=== PATIENT | female | born 1985 | race African-American/Black ===

== ENCOUNTER → 2021-03-25 | Outpatient (CLI) | payer OTHER ==
[2021-03-25 14:32] LABS: BASO % 0.2 % (0.0-1.0); EOS # 0.2 10^3/uL (0.0-0.5); EOS % 1.8 % (0.0-3.0); HEMATOCRIT 39.3 % (36.0-47.0); HEMOGLOBIN 12.7 g/dl (12.0-15.5); LYMPH # 2.9 10^3/uL (1.5-5.0); LYMPH % 32.4 % (24.0-44.0); MEAN CORPUSCULAR HEMOGLOBIN 29.9 pg (27.0-33.0); MEAN CORPUSCULAR HGB CONC 32.3 g/dl (32.0-36.5); MEAN CORPUSCULAR VOLUME 92.5 fl (80.0-96.0); MONO # 0.5 10^3/uL (0.0-0.8); MONO % 5.5 % (2.0-8.0); NEUTROPHILS # 5.4 10^3/uL (1.5-8.5); NEUTROPHILS % 59.9 % (36.0-66.0); PLATELET COUNT, AUTOMATED 443 10^3/uL (150-450); RED BLOOD COUNT 4.25 10^6/uL (4.00-5.40); WHITE BLOOD COUNT 8.9 10^3/uL (4.0-10.0)
[2021-03-25 15:46] LABS: HEPATITIS B SURFACE ANTIGEN NEGATIVE (NEGATIVE)
== END ==
LOC: M LAB 13:09
PROVIDERS: ATTEND Internal Medicine Gastroenterology
DX: K50.80 Crohn's disease of both small and large intestine without complications (principal)

== ENCOUNTER → 2021-03-30 | Outpatient (REF) | payer OTHER | LOC: M LAB REF 14:34 | PROVIDERS: ATTEND Internal Medicine Gastroenterology | DX: K50.80 Crohn's disease of both small and large intestine without complications (principal) ==

== ENCOUNTER 2021-06-01 14:31 | Outpatient (CLI) | payer OTHER ==
[~2021-06-01] VITALS: Ht 160 cm; Wt 100.0 kg
[~2021-06-01 14:31] MED LIST: VEDOLIZUMAB 300 MG in NS 250 ML IV ONE; diphenhydrAMINE 25MG CAP PO ONE
[2021-06-01 15:20] VITALS: BP 137/82
[2021-06-01] MEDS ORDERED: AMLO25TA PO (15:36)
[2021-06-01] MEDS ORDERED: CHLO125TA PO (15:36)
== END 2021-06-01 16:10 | disposition home or self-care (01) ==
LOC: M INFU 14:31
PROVIDERS: ATTEND Internal Medicine Gastroenterology
DX: K50.90 Crohn's disease, unspecified, without complications (principal)

== ENCOUNTER 2021-06-05 03:52 | Emergency (ER) | payer OTHER, SELFPAY ==
[~2021-06-05] VITALS: Ht 160 cm; Wt 98.4 kg
[~2021-06-05 03:52] MED LIST changes: +AMLO25TA PO; +CHLO125TA PO; -VEDOLIZUMAB 300 MG in NS 250 ML IV ONE; -diphenhydrAMINE 25MG CAP PO ONE
[2021-06-05] MEDS ORDERED: ENTY1INJ IV (04:13)
[2021-06-05] MEDS ORDERED: PRED10PA PO (04:13)
[2021-06-05] MEDS ORDERED: ZOFR4TAB16 PO (04:13)
[2021-06-05] MEDS ORDERED: DICY10CA13 PO (04:13)
[2021-06-05] MEDS ORDERED: METOCLOPRAMIDE INJ 10MG/2ML VIAL (J2765 PER 1) IV ONE (08:40)
[2021-06-05] MEDS ORDERED: NS 1,000 ML IV ONE (08:40)
[2021-06-05] MEDS ORDERED: PANTOPRAZOLE 40MG VIAL (C9113 PER 1) IV ONE (08:55)
[2021-06-05 09:57] LABS: BASO # 0.1 10^3/uL (0.0-0.2); BASO % 0.4 % (0.0-1.0); EOS # 0.1 10^3/uL (0.0-0.5); HEMATOCRIT 41.2 % (36.0-47.0); HEMOGLOBIN 13.4 g/dl (12.0-15.5); LYMPH % 30.6 % (24.0-44.0); MEAN CORPUSCULAR HEMOGLOBIN 30.1 pg (27.0-33.0); MEAN CORPUSCULAR HGB CONC 32.5 g/dl (32.0-36.5); MEAN CORPUSCULAR VOLUME 92.6 fl (80.0-96.0); MONO # 0.9 10^3/uL (0.0-0.8); MONO % 7.1 % (2.0-8.0); NEUTROPHILS # 7.9 10^3/uL (1.5-8.5); NEUTROPHILS % 60.3 % (36.0-66.0); PLATELET COUNT, AUTOMATED 437 10^3/uL (150-450); RED BLOOD COUNT 4.45 10^6/uL (4.00-5.40); WHITE BLOOD COUNT 13.1 10^3/uL (4.0-10.0)
[2021-06-05 10:22] LABS: BLOOD UREA NITROGEN 15 MG/DL (7-18); CALCIUM LEVEL 9.3 MG/DL (8.5-10.1); CARBON DIOXIDE LEVEL 32 MEQ/L (21-32); CHLORIDE LEVEL 96 MEQ/L (98-107); CREATININE FOR GFR 0.89 MG/DL (0.55-1.30); GLOMERULAR FILTRATION RATE > 60.0 (>60); GLUCOSE, FASTING 110 MG/DL (70-100); POTASSIUM SERUM 3.3 MEQ/L (3.5-5.1); SODIUM LEVEL 133 MEQ/L (136-145)
[2021-06-05 10:52] VITALS: BP 131/77
[2021-06-05 11:13] LABS: ALBUMIN 2.9 GM/DL (3.2-5.2); ALT/SGPT 80 U/L (12-78); BILIRUBIN,DIRECT < 0.1 MG/DL (0.0-0.2); BILIRUBIN,TOTAL 0.4 MG/DL (0.2-1.0); LIPASE 32 U/L (73-393); TOTAL PROTEIN 7.5 GM/DL (6.4-8.2)
[2021-06-05] MEDS ORDERED: POTASSIUM CHLORIDE 10MEQ SR TABLET PO ONE (11:15)
[2021-06-05] MEDS: GASTROGRAFIN SOLUTION 30ML PO SCH ×2 (12:45→13:15)
[2021-06-05] MEDS ORDERED: ISOVUE-370 76% 100ML VIAL As Ordered ONE (13:45)
--- NOTE | 2021-06-05 14:28 | REP ---
INDICATION: Crohn's, increased abd pain. COMPARISON: None. TECHNIQUE: Standard helical technique after the intravenous administration of 100 cc Isovue 370 FINDINGS: The lung bases are clear. The liver, spleen, pancreas, adrenal glands, and kidneys are within normal limits. Tiny densities are seen in the dependent portion of the gallbladder. The abdominal aorta and para-aortic regions are within normal limits. The bowel loops and the mesenteries are within normal limits. There is no evidence of free fluid or free air. There is no evidence of a mass or adenopathy. There is a T-shaped radiodensity in the uterus consistent with an IUD. Bone window technique throughout the examination shows the osseous structures to be within normal limits. IMPRESSION: Possible tiny gravel-like choleliths. CT findings are otherwise within normal limits. <Electronically signed by Mitul Chambers > 06/05/21 [id number]
--- NOTE | 2021-06-05 16:19 | REP ---
INDICATION: ?stones on CT, r/o cholecystitis. TECHNIQUE: Real-time sonographic evaluation of the right upper quadrant with Doppler FINDINGS: Multiple ultrasonographic images of the liver show the hepatic parenchymal echo texture to appear unremarkable. There are no focal masses. There is no intrahepatic ductal dilatation. The common bile duct measures approximately 5 mm in its greatest transverse dimension. Multiple ultrasonographic images of the gallbladder show no focal or diffuse gallbladder wall thickening. There are no echogenic foci within the gallbladder lumen, which casts acoustic shadows. There is no pericholecystic edema. Images of the pancreatic region show no gross abnormality. The imaged portion of the right kidney is unremarkable. IMPRESSION: Unremarkable right upper quadrant ultrasound. Accredited by the [employer] in General Ultrasound. <Electronically signed by Mitul Chambers > 06/05/21 [id number]
[2021-06-05] MEDS ORDERED: GI COCKTAIL 50ML BTL(HYOSCYAMINE/MAALOX/LIDOCAINE VISCOUS)(1:3:1) PO ONE (16:20)
[2021-06-05] MEDS ORDERED: PROT1TAB2 PO (16:26)
[2021-06-05] MEDS ORDERED: REGL10TA6 PO (16:26)
== END 2021-06-05 16:59 | disposition home or self-care (01) ==
LOC: M ED 03:52
DX: K50.90 Crohn's disease, unspecified, without complications (principal); K29.70 Gastritis, unspecified, without bleeding; T50.995A Adverse effect of other drugs, medicaments and biological substances, initial encounter; Y92.89 Other specified places as the place of occurrence of the external cause; E66.9 Obesity, unspecified; Z79.899 Other long term (current) drug therapy
CPT/HCPCS: 74177; 76705; 80048; 80076; 81001; 83690; 85025; 96361; 96374; 96375; 99284; C9113; J2765; Q9963; Q9967

== ENCOUNTER 2021-06-13 18:49 | Inpatient (IN) | payer OTHER ==
[~2021-06-13] VITALS: Ht 160 cm; Wt 94.3 kg
[~2021-06-13 18:49] MED LIST changes: +DICY10CA13 PO; +ENTY1INJ IV; +PRED10PA PO; +PROT1TAB2 PO; +REGL10TA6 PO; +ZOFR4TAB16 PO
[2021-06-13 21:15] VITALS: BP 163/102
[2021-06-13] MEDS ORDERED: NS 1,000 ML IV ONE (21:25)
[2021-06-13] MEDS ORDERED: ONDANSETRON 4MG/2ML VIAL IV PRN (21:25)
[2021-06-13] MEDS ORDERED: NS 1,000 ML IV SCH (21:25)
--- NOTE | 2021-06-13 21:51 | HPEPDOC ---
General Date of Admission Jun 13, 2021 at 20:06 Date of Service: Jun 13, 2021 Chief Complaint The patient is a 35-year-old female admitted with a reason for visit of Severe Crohns Disease. Source: Patient, Family History of Present Illness Jessie Boone is a 35yo AA female with significant medical history of Crohn's disease and hypertension who presents with complaints of intractable nausea/vomiting. Patient seen in waiting area as she is a direct admit from GI clinic. Exam somewhat limited given pending room placement and patient is notably fatigued and having trouble conversing or giving detailed history due to her nausea. However, family member at bedside does help with HPI. Reportedly, patient has a history of Crohn's and last flare in 2018/2018. For the past 2 to 3 years patient has been without any flareups and thus she was deescalated off any medications. Patient moved to [place] in December and establish care in March with Dr. Manzo when pt started noticing some GI changes similar to past. She reports everything was status quo until 2 weeks ago she started having some nausea vomiting abdominal discomfort and diarrhea. On June 03 she presented to [place] and was found to be slightly dehydrated given some IV fluid and plan for discharge home with follow-up OP. Unfortunately, patient had worsening abdominal discomfort and nausea vomiting June 05 and presented to [facility] ER. She underwent labs and imaging and was sent home. Specifically, the CT abdomen pelvis showed "gravel-like" galls tones without acute cholecystitis and thus gallbladder ultrasound was completed -found unremarkable and patient was sent home for follow-up with GI. Patient reported for GI follow-up today. Patient still with poor p.o. intake, nausea vomiting and diarrhea. She is with periumbilical and left mid quadrant discomfort upon examination however not exquisitely tender. Given her poor p.o. intake, tachycardia, noticeable discomfort and significant history, GI suggested direct admit for hydration and sepsis work-up as well and anticipated scope in 1 to 2 days. Pt denies fever/chills, fulton, sinus congestion, sore throat, productive cough, sob, palpitations, chest pain, sensory changes or syncope. Patient endorses dry mouth and feeling thirsty. She reports some episodes of diarrhea, denies blood. Abdominal pain described as moderate aching; worse with palpation. She does report some aggravation during emesis. She is found to be hypertensive 163/103 hr 109 afebrile. She endorses taking her thiazide diuretic and Norvasc earlier today and able to "keep it down". Admission imaging and lab studies to be obtained. Patient will be admitted for further evaluation management of presenting concerns Home Medications Scheduled Chlorthalidone (Chlorthalidone) 25 Mg Tablet, 1 TAB PO DAILY, (Reported) Dicyclomine HCl (Dicyclomine HCl) 10 Mg Capsule, 10 MG PO TID for irritable bowel symptoms, (Reported) Pantoprazole Sodium (Protonix) 40 Mg Tablet.dr, 40 MG PO DAILY Prednisone (Prednisone) 10 Mg Tab.ds.pk, 10 MG PO DAILY, (Reported) Vedolizumab (Entyvio) 300 Mg Vial, 300 MG IV asd, (Reported) Scheduled PRN Metoclopramide HCl (Reglan) 10 Mg Tablet, 10 MG PO Q6H PRN for NAUSEA Ondansetron HCl (Zofran) 4 Mg Tablet, 4 MG PO Q6-8HP PRN for nausea/vomiting, (Reported) Allergies Coded Allergies: No Known Allergies (Unverified , 06/05/21) Past Medical History Medical History Hypertension, Crohn's disease Surgical History Two C-sections, wisdom teeth removal Family History Significant Family History: Hypertension Social History * Smoker: non-smoker Alcohol: Denies Drugs: denies Recent Travel/Sick Contacts: Reports: Recent travel Psychosocial History: No pertinent psych hx Patient is , has children and recently moved to [place] in December A-FIB/[facility] A-FIB History Current/History of A-Fib/PAF?: No Current PO Anticoag Therapy: No Review of Systems Constitutional: Reports: Fatigue; Denies: Chills, Fever, Night Sweats Eyes: Denies: Pain, Vision change ENT: Denies: Head Aches, Ear Pain, Dysphagia Skin: Denies: Rash, Lesions, Breakdown Pulmonary: Denies: Dyspnea, Cough Cardiovascular: Denies: Chest Pain, Palpitations, Orthopnea, Paroxysmal Noc. Dyspnea, Lt Headedness Gastrointestinal: Reports: Nausea, Vomiting, Abdominal Pain, Diarrhea Genitourinary: Denies: Dysuria, Frequency, Incontinence, Retention Hematologic: Denies: Bruising, Bleeding Excessively Musculoskeletal: Denies: Neck Pain, Back Pain, Joint Pain, Muscle Pain, Spasms Neurological: Denies: Weakness, Numbness, Change in speech, Confusion Psych: Reports: Mood Normal; Denies: Depression, Memory Issues Physical Examination General Exam: Positive: Alert, Cooperative, Mild Distress (Patient appears uncomfortable and exhausted) Eye Exam: Positive: PERRLA, Conjunctiva & lids normal, EOMI; Negative: Sclera icteric ENT Exam: Positive: Atraumatic, Mucous membr. moist/pink, Pharynx Normal Neck Exam: Positive: Supple; Negative: JVD, thyromegaly Chest Exam: Positive: Clear to auscultation, Normal air movement Heart Exam: Positive: Tachycardic, Regular Rhythm, Normal S1, Normal S2; Negative: Murmurs, Rubs Abdomen Exam: Positive: Normal bowel sounds, Soft, Tenderness (Umbilical and left upper quadrant); Negative: Hepatospenomegaly Extremity Exam: Positive: Normal pulses; Negative: Clubbing, Cyanosis, Edema Skin Exam: Positive: Nl turgor and temperature; Negative: Breakdown, Lesion Neuro Exam: Positive: Normal Gait, Normal Speech, Cranial Nerves 3-12 NL, Reflexes 2+ Psych Exam: Positive: Mental status NL, Mood NL, Oriented x 3 Vital Signs hr 103, bp 163/103, T97.3, RR20 Assessment/Plan 1. Intractable nausea/vomiting abdominal plain: In setting of history of Crohn's disease Monitor patient I's and O's KUB and Anticipate will need CT abdomen pelvis although patient does vocalize discomfort with the thought of having to go for further imaging at this time Symptom management/supportive care: Hydration,antiemetics, analgesics Monitor for signs symptoms of infection; initial lab work pending consider infectious etiology given pt with SIRS. Consider empiric coverage if pt becomes febrile. -Will hold off on steroids for Flare pend return of labs and imaging for sepsis w/u. A.m. labs, f/u BC Clear liquid diet GI consult; appreciate further recommendations 2. Hypertensive urgency: BP 163/103. In setting of admission, reported pain, ac tive dry heaving. Patient reports that she has been compliant with medications but is unsure if she "kept them down". -Monitor BP in setting of above, consideration of infection. -Thiazide diuretic held given to poor p.o. intake and dehydration -Continue Norvasc 3. Tachycardia: Heart rate 100-115. Regular upon auscultation. In setting of above, likely dehydration and demand driven, anticipate improvement with treatment above. -Obtain EKG; QTC will be helpful if patient needs to be initiated on antibiotics as well as for baseline monitoring with frequent antiemetic use -Patient will be monitored on telemetry -Check magnesium -Hydrate and electrolyte repletion as needed 4. Obesity: Complicates care DVT prophylaxis: Abhinav score low; SCDs and encourage early ambulation CODE STATUS: Full code, at bedside would be patient's surrogate Disposition planning: Home pending clinical improvement Plan / VTE VTE Prophylaxis Ordered?: Yes OLIVIA SAMUEL NP Jun 13, 2021 20:55
--- NOTE | 2021-06-13 22:12 | REPVR ---
PROCEDURE INFORMATION: Exam: XR Chest Exam date and time: 06/13/2021 9:51 PM Age: 35 years old Clinical indication: Other: Sepsis? ; Additional info: Aspiration, sepsis w/u TECHNIQUE: Imaging protocol: XR of the chest. Views: 1 view. COMPARISON: CT ABD/PEL W/IV ORAL CONTRAS 06/05/2021 1:59 PM FINDINGS: Lungs: Low lung volumes. Clear lungs. Pleural spaces: Unremarkable. No pleural effusion. No pneumothorax. Heart/Mediastinum: Unremarkable. No cardiomegaly. Bones/joints: Unremarkable. IMPRESSION: No acute findings. Electronically signed by: Zackery Martines On 06/13/2021 22:12:05 PM
--- NOTE | 2021-06-13 22:12 | REPVR ---
PROCEDURE INFORMATION: Exam: XR Abdomen Exam date and time: 06/13/2021 9:51 PM Age: 35 years old Clinical indication: Abdominal pain; Other: Severe crohns disease; Additional info: N/v, abdominal pain TECHNIQUE: Imaging protocol: XR of the abdomen. Views: Frontal supine view of the abdomen. 1 View. COMPARISON: CT ABD/PEL W/IV ORAL CONTRAS 06/05/2021 1:59 PM FINDINGS: Gastrointestinal tract: Normal. No bowel dilation. Bones/joints: Unremarkable. IMPRESSION: No acute findings. Electronically signed by: Zackery Martines On 06/13/2021 22:11:38 PM
[2021-06-13] MEDS: MORPHINE 2 MG/ML 1ML VIAL (J2270) IV PRN (23:15)
[2021-06-13 23:19] LABS: BASO # 0.1 10^3/uL (0.0-0.2); BASO % 0.6 % (0.0-1.0); EOS % 0.3 % (0.0-3.0); HEMATOCRIT 45.1 % (36.0-47.0); HEMOGLOBIN 14.9 g/dl (12.0-15.5); LYMPH # 2.7 10^3/uL (1.5-5.0); LYMPH % 20.9 % (24.0-44.0); MEAN CORPUSCULAR HEMOGLOBIN 30.2 pg (27.0-33.0); MEAN CORPUSCULAR VOLUME 91.5 fl (80.0-96.0); MONO # 0.8 10^3/uL (0.0-0.8); MONO % 5.7 % (2.0-8.0); NEUTROPHILS # 9.4 10^3/uL (1.5-8.5); NEUTROPHILS % 71.7 % (36.0-66.0); PLATELET COUNT, AUTOMATED 465 10^3/uL (150-450); RED BLOOD COUNT 4.93 10^6/uL (4.00-5.40); WHITE BLOOD COUNT 13.1 10^3/uL (4.0-10.0)
[2021-06-13 23:51] LABS: ALBUMIN 2.7 GM/DL (3.2-5.2); ALT/SGPT 20 U/L (12-78); AMYLASE 38 U/L (25-115); BILIRUBIN,TOTAL 0.5 MG/DL (0.2-1.0); BLOOD UREA NITROGEN 6 MG/DL (7-18); CALCIUM LEVEL 9.5 MG/DL (8.5-10.1); CARBON DIOXIDE LEVEL 27 MEQ/L (21-32); CHLORIDE LEVEL 87 MEQ/L (98-107); CREATININE FOR GFR 0.76 MG/DL (0.55-1.30); GLOMERULAR FILTRATION RATE > 60.0 (>60); GLUCOSE, FASTING 100 MG/DL (70-100); LIPASE 42 U/L (73-393); MAGNESIUM LEVEL 2.1 MG/DL (1.8-2.4); POTASSIUM SERUM 2.4 MEQ/L (3.5-5.1); SODIUM LEVEL 128 MEQ/L (136-145); TOTAL PROTEIN 8.5 GM/DL (6.4-8.2)
[2021-06-14] VITALS (7 sets, daily range): BP systolic 122–135; BP diastolic 76–92
[2021-06-14] MEDS ORDERED: POTASSIUM CHLORIDE 10MEQ SR TABLET PO ONE (00:55)
[2021-06-14] MEDS ORDERED: PROMETHAZINE INJ 25 MG/ML VIAL (J2550) IM ONE (01:00)
[2021-06-14] MEDS: KCL 10MEQ/100ML SWI (KRUN) 10 MEQ in IV 1 EA IV SCH ×6 (02:16→18:05)
[2021-06-14] MEDS ORDERED: KCL 40MEQ in NS 1000ML 1,000 ML IV SCH ×2 (02:40→08:00)
[2021-06-14] MEDS ORDERED: NS 1,000 ML IV SCH (02:50)
[2021-06-14] MEDS ORDERED: AMLO1TAB24 PO (03:02)
[2021-06-14] MEDS ORDERED: METH-1164 PO (03:02)
[2021-06-14] MEDS ORDERED: HOME MED LIST COMPLETE! XX SCH (03:05)
[2021-06-14] MEDS: MORPHINE 2 MG/ML 1ML VIAL (J2270) IV PRN ×2 (03:22→07:36)
[2021-06-14 05:56] LABS: RSV AMPLIFICATION NEGATIVE (NEGATIVE)
--- NOTE | 2021-06-14 07:06 | ECGEPIP ---
[facility] Test Date: 2021-06-14 Pat Name: KATI BRICENO Department: Room: [place] [address] Gender: Female Commodity Supervisor: Marjan YI RN : 1985 Requested By: OLIVIA Azevedo Order Number: [id number] Reading MD: Monica Li Measurements Intervals [place] Rate: 101 P: 48 LA: 138 QRS: 20 QRSD: 100 T: 35 QT: 348 QTc: 451 Interpretive Statements Sinus tachycardia NO PRIOR LAE Electronically Signed on 06-14-2021 7:06:03 EST by Monica Li
[2021-06-14] MEDS ORDERED: POTASSIUM CHLORIDE 10MEQ SR TABLET PO SCH (09:00)
[2021-06-14] MEDS: NS 1,000 ML IV SCH ×2 (09:02→18:06)
[2021-06-14] MEDS: ONDANSETRON 4MG/2ML VIAL IV SCH ×3 (09:02→16:52)
[2021-06-14] MEDS ORDERED: KCL 10MEQ/100ML SWI (KRUN) 10 MEQ in IV 1 EA IV SCH (09:35)
[2021-06-14] MEDS ORDERED: HYDROMORPHONE HCL 0.5 MG/ 0.5 ML SYRINGE (J1170 PER 1) IV ONE (09:45)
[2021-06-14] MEDS: CIPROFLOXACIN 400 MG in IV 1 EA IV SCH (10:01)
[2021-06-14] MEDS: KCL 10MEQ/100ML SWI (KRUN) 100 ML IV SCH ×2 (10:01→13:08)
[2021-06-14 10:15] LABS: BASO # 0.1 10^3/uL (0.0-0.2); BASO % 0.4 % (0.0-1.0); EOS # 0.1 10^3/uL (0.0-0.5); EOS % 0.5 % (0.0-3.0); HEMATOCRIT 38.2 % (36.0-47.0); LYMPH # 2.4 10^3/uL (1.5-5.0); LYMPH % 20.7 % (24.0-44.0); MEAN CORPUSCULAR HEMOGLOBIN 30.3 pg (27.0-33.0); MEAN CORPUSCULAR VOLUME 91.8 fl (80.0-96.0); MONO # 0.6 10^3/uL (0.0-0.8); MONO % 4.8 % (2.0-8.0); NEUTROPHILS # 8.5 10^3/uL (1.5-8.5); PLATELET COUNT, AUTOMATED 429 10^3/uL (150-450); RED BLOOD COUNT 4.16 10^6/uL (4.00-5.40); WHITE BLOOD COUNT 11.6 10^3/uL (4.0-10.0)
[2021-06-14 10:20] LABS: HEMOGLOBIN 12.6 g/dl (12.0-15.5)
[2021-06-14 10:38] LABS: GLUCOSE, FASTING 104 MG/DL (70-100)
[2021-06-14 10:39] LABS: BLOOD UREA NITROGEN 6 MG/DL (7-18); CALCIUM LEVEL 8.7 MG/DL (8.5-10.1); CARBON DIOXIDE LEVEL 29 mmol/L (20-29); CHLORIDE LEVEL 96 MEQ/L (98-107); CREATININE FOR GFR 0.68 MG/DL (0.55-1.30); GLOMERULAR FILTRATION RATE > 60.0 (>60); POTASSIUM SERUM 3.3 MEQ/L (3.5-5.1); SODIUM LEVEL 134 MEQ/L (136-145)
--- NOTE | 2021-06-14 11:52 | IPN ---
PROGRESS NOTE DATE: 06/14/2021 SUBJECTIVE: Patient complains of a burning sensation through her I.V. line while the potassium is infusing. She had a foul smelling bowel movement this morning. Denies any chest pain, pressure or tightness, lightheadedness. She has diffuse abdominal pain with some nausea and 1 episode of emesis this morning. No fevers overnight. OBJECTIVE: Temperature 97.1, pulse 100 sinus, respiratory rate 18, blood pressure 134/89, 85% on room air. General: Awake, alert, oriented to person, place and time, no distress, speaks in full sentences. HEENT: Anicteric, no jaundice. Moist mucous membranes. Neck: No JVD, no thyromegaly. Lungs: Clear to auscultation, no wheezes or rales. Heart: S1 and S2 sinus rhythm. Abdomen: Soft, tender mostly in the epigastric region, no guarding or rebound. No hepatosplenomegaly. Extremities: No cyanosis or clubbing. Patient has peripheral I.V. in her left hand. LABORATORY DATA: Still pending. 06/13/2021 laboratory data is significant for a sodium of 128, potassium of 2.4. ASSESSMENT: This is a 35-year-old female with history of Crohn's disease admitted from the GI Clinic due to worsening symptoms of Crohn's disease with nausea, vomiting and abdominal pain. CT abdomen and pelvis is still pending. Patient was found to have hyponatremia, hypokalemia due to vomiting and nausea at home. IMPRESSIONS/PLAN: 1. Intractable nausea, vomiting and abdominal pain with history of Crohn's disease: Patient is awaiting a CT abdomen and pelvis today. Symptomatic relief with I.V. fluids. Supplement electrolytes. Pain medications and antiemetics. GI Dr. Manzo has been consulted. GI panel has been sent. 2. Hypokalemia, hyponatremia due to volume loss from nausea, vomiting and diarrhea: Patient had been repleted with potassium through the I.V., but complains of pain. PICC line has been ordered. Awaiting blood cultures to be negative for PICC line to be placed. Continue with I.V. fluids, potassium supplementation and repeat basic metabolic panel q6h until sodium level is stable. Continue with telemetry monitoring. 3. Hypertension: Controlled. Patient is not taking any oral intake. Continue on telemetry monitoring and PCU status. If blood pressure is elevated we could either give patches of nitroglycerin or clonidine or I.V. metoprolol. MTDD
[2021-06-14] MEDS: metroNIDAZOLE 500 MG in IV 1 EA IV SCH ×2 (13:09→20:54)
[2021-06-14] MEDS: HYDROMORPHONE HCL 0.5 MG/ 0.5 ML SYRINGE (J1170 PER 1) IV PRN ×3 (13:38→20:18)
[2021-06-14] MEDS ORDERED: LIDOCAINE 1% MDV 20ML VIAL As Ordered ONE (13:54)
[2021-06-14] MEDS ORDERED: KETOROLAC 30 MG/ML 1ML VIAL IV ONE (16:55)
[2021-06-14] MEDS: GASTROGRAFIN SOLUTION 30ML PO SCH ×2 (17:58→18:29)
[2021-06-14] MEDS ORDERED: KCL 10MEQ IN STERILE WATER 100ML As Ordered ONE (18:03)
[2021-06-14] MEDS: SODIUM CHLORIDE 0.9% INJ 10 ML SYR IV SCH (18:06)
[2021-06-14] MEDS ORDERED: ISOVUE-370 76% 100ML VIAL As Ordered ONE (19:14)
--- NOTE | 2021-06-14 20:56 | REPVR ---
PROCEDURE INFORMATION: Exam: XR Chest Exam date and time: 06/14/2021 8:20 PM Age: 35 years old Clinical indication: Device placement; Picc; Additional info: Confirm picc placement TECHNIQUE: Imaging protocol: XR of the chest. Views: 1 view. COMPARISON: CR PORTABLE CHEST X-RAY 06/13/2021 9:36 PM FINDINGS: Tubes, catheters and devices: The tip of a right peripherally inserted central venous catheter lies in the SVC approximately 5.4 cm above the cavoatrial junction. Lungs: Unremarkable. No consolidation. Pleural spaces: Unremarkable. No pleural effusion. No pneumothorax. Heart/Mediastinum: Unremarkable. No cardiomegaly. Bones/joints: Unremarkable. IMPRESSION: No acute findings. Electronically signed by: Zackery Martines On 06/14/2021 20:55:38 PM
--- NOTE | 2021-06-14 22:06 | REPVR ---
PROCEDURE INFORMATION: Exam: CT Abdomen And Pelvis With Contrast Exam date and time: 06/14/2021 9:46 PM Age: 35 years old Clinical indication: Abdominal pain; Generalized; Additional info: Abd pain crohns TECHNIQUE: Imaging protocol: Computed tomography of the abdomen and pelvis with contrast. Radiation optimization: All CT scans at this facility use at least one of these dose optimization techniques: automated exposure control; mA and/or kV adjustment per patient size (includes targeted exams where dose is matched to clinical indication); or iterative reconstruction. Contrast material: ISOVUE 370; Contrast volume: 100 ml; Contrast route: INTRAVENOUS (IV); Other contrast: Oral; COMPARISON: CT ABD/PEL W/IV ORAL CONTRAS 06/05/2021 1:59 PM FINDINGS: Liver: Normal. No mass. Gallbladder and bile ducts: Normal. No calcified stones. No ductal dilation. Pancreas: Normal. No ductal dilation. Spleen: Normal. No splenomegaly. Adrenal glands: Normal. No mass. Kidneys and ureters: Normal. No hydronephrosis. Stomach and bowel: Diffusely inflamed colon demonstrating a thickened wall particularly in the right colon with pericolonic inflammatory changes and varying degrees of mucosal enhancement with a diffusely ahaustral contour, findings consistent with diffuse colitis. No evidence of an abscess demonstrated. Appendix: No evidence of appendicitis. Intraperitoneal space: Unremarkable. No free air. No significant fluid collection. Vasculature: Unremarkable. No abdominal aortic aneurysm. Lymph nodes: Unremarkable. No enlarged lymph nodes. Urinary bladder: Unremarkable as visualized. Reproductive: IUD demonstrated centrally within the uterus. Bones/joints: Unremarkable. No acute fracture. Soft tissues: Unremarkable. IMPRESSION: Diffusely inflamed colon demonstrating a thickened wall particularly in the right colon with pericolonic inflammatory changes and varying degrees of mucosal enhancement with a diffusely ahaustral contour, findings consistent with diffuse colitis. No evidence of an abscess demonstrated. Electronically signed by: Zackery Martines On 06/14/2021 22:05:55 PM
[2021-06-14] MEDS: ONDANSETRON 4MG/2ML VIAL IV PRN (22:51)
[2021-06-14] MEDS ORDERED: ACETAMINOPHEN *IV* 1,000 MG in IV 1 EA IV ONE (23:00)
[2021-06-15] MEDS: CIPROFLOXACIN 400 MG in IV 1 EA IV SCH ×3 (00:37→22:42)
[2021-06-15] MEDS: HYDROMORPHONE HCL 0.5 MG/ 0.5 ML SYRINGE (J1170 PER 1) IV PRN ×6 (00:38→22:44)
[2021-06-15] MEDS: NS 1,000 ML IV SCH ×4 (04:05→14:50)
[2021-06-15] MEDS: metroNIDAZOLE 500 MG in IV 1 EA IV SCH ×3 (04:54→20:02)
[2021-06-15] MEDS: ONDANSETRON 4MG/2ML VIAL IV PRN ×2 (04:54→09:06)
[2021-06-15 06:00] VITALS: BP 137/95
[2021-06-15] MEDS: SODIUM CHLORIDE 0.9% INJ 10 ML SYR IV SCH ×2 (06:11→14:50)
[2021-06-15 06:36] LABS: BLOOD UREA NITROGEN 5 MG/DL (7-18); CARBON DIOXIDE LEVEL 21 MEQ/L (21-32); CHLORIDE LEVEL 97 MEQ/L (98-107); GLOMERULAR FILTRATION RATE > 60.0 (>60); GLUCOSE, FASTING 97 MG/DL (70-100); POTASSIUM SERUM 3.2 MEQ/L (3.5-5.1); SODIUM LEVEL 131 MEQ/L (136-145)
[2021-06-15 06:52] LABS: HEMATOCRIT 36.8 % (36.0-47.0); MEAN CORPUSCULAR HEMOGLOBIN 30.4 pg (27.0-33.0); MEAN CORPUSCULAR HGB CONC 32.6 g/dl (32.0-36.5); MEAN CORPUSCULAR VOLUME 93.2 fl (80.0-96.0); PLATELET COUNT, AUTOMATED 354 10^3/uL (150-450); RED BLOOD COUNT 3.95 10^6/uL (4.00-5.40); WHITE BLOOD COUNT 12.3 10^3/uL (4.0-10.0)
[2021-06-15 07:48] LABS: ATYPICAL LYMPH 1 % (0-5); BASOPHILS 1 % (0-1); LYMPHOCYTES 20 % (16-44); MONOCYTES 3 % (0-5); NEUTROPHILS 68 % (28-66); PLATELET ESTIMATE NORMAL (NORMAL)
[2021-06-15 14:00] VITALS: BP 145/83
[2021-06-15] MEDS ORDERED: PROMETHAZINE INJ 25 MG/ML VIAL (J2550) IV ONE (14:30)
--- NOTE | 2021-06-15 15:32 | IPNPDOC ---
Date Seen The patient was seen on 06/15/21. Progress Note SUBJECTIVE: c/o >8 loose diarrhea. no fever or chlls. diffuse abd pain 10/10 sharp w/o radiation. no n/v. tolerating diet. OBJECTIVE: PE: vitals: see below General: no distress. aaox 3 HEENT: Anicteric, no jaundice. Moist mucous membranes. Neck: No JVD, no thyromegaly. Lungs: Clear to auscultation, no wheezes or rales. Heart: S1 and S2 sinus rhythm. Abdomen: Soft, tender mostly in the epigastric region, no guarding or rebound. No hepatosplenomegaly. +bs Extremities: No cyanosis or clubbing. Patient has peripheral I.V. in her left hand. LABORATORY DATA:see below ASSESSMENT: This is a 35-year-old female with history of Crohn's disease admitted from the GI Clinic due to worsening symptoms of Crohn's disease with nausea, vomiting and abdominal pain. CT abdomen and pelvis is still pending. Patient was found to have hyponatremia, hypokalemia due to vomiting and nausea at home. crohn's exacerbation GI consulted. neg gi panel ct abd: reviewed per gi, failed on entyvio, ok to give iv solumedrol 60mg inpt. change to po prednisone taper 50mg as outpt iv cipro iv flagyl ivfluids liquid diet advance as tolerated Hypokalemia, hyponatremia, resolved due to volume loss from diarrhea Hypertension: Controlled. disposition: 2-3 days pending improvement and po dietary intake. VS, I&O, 24H, [facility] Vital Signs/I&O Vital Signs Date Time Temp Pulse Resp B/P (MAP) Pulse Ox O2 Delivery O2 Flow Rate FiO2 06/15/21 14:00 98.5 115 20 145/83 (103) 96 Room Air 06/14/21 08:00 134.0 89 I&O- Last 24 Hours up to 6 AM 06/15/21 06:00 Intake Total 1890 ml Balance 1890 ml Laboratory Data 24H LABS Laboratory Tests 2 06/15/21 05:33: Neutrophils (%) (Auto) , Nucleated Red Blood Cells % (auto) 0.0, Neutrophils 68H, Band Neutrophils 7, Lymphocytes (Manual) 20, Monocytes (Manual) 3, Basophils (Manual) 1, Atypical Lymphocytes 1, Red Blood Cell Morphology NORMAL, Platelet Estimate NORMAL, Anion Gap 13, Glomerular Filtration Rate > 60.0, Calcium Level 8.0L CBC/BMP Laboratory Tests 06/15/21 05:33 Microbiology Microbiology 06/14/21 Gastrointestinal Tract Panel (PCR) - Final, Complete 06/13/21 Blood Culture - Preliminary, Resulted No growth after 24 hours . All specim... 06/13/21 Blood Culture - Preliminary, Resulted No growth after 24 hours . All specim... MALACHI LANDERS MD Jun 15, 2021 15:32
[2021-06-15] MEDS: methylPREDNISolone 125MG 2ML VIAL IV SCH (15:58)
--- NOTE | 2021-06-15 17:22 | REP ---
PROCEDURE NAME: PICC LINE INSERTION W/SITERITE CLINICAL INFORMATION: poor iv access irritating MEDS. COMPARISON: None. PROCEDURE DESCRIPTION: The procedure was performed by HILARY Ramirez, under the direct supervision of Dr. Root. The risks and benefits of the procedure were explained to the patient and an informed consent was obtained both verbally and written. Directly prior to the start of the procedure a formal time-out was completed in the procedure room. The right basilic vein was localized using ultrasound guidance. The skin was prepped and draped in sterile fashion. Five mL of 1% lidocaine 10 mg/mL was used as a local anesthetic. Using ultrasound guidance the right basilic vein was cannulated, and a 0.018 guidewire was inserted and advanced to the level of SVC using fluoroscopic guidance. The needle was removed and a 6 [place]ic dilator and peel-away sheath was inserted over the guidewire. A 5.5 [place]ic double lumen catheter was cut to a length of 35 cm. The dilator was removed and the catheter was inserted over the guidewire with the tip ending at the level of the SVC. The peel-away sheath was removed and the catheter was flushed with heparinized saline as per hospital protocol. The catheter was affixed to the skin and a sterile dressing was applied. The patient tolerated the procedure well and there were no immediate complications. CONCLUSION: PICC line insertion into the right basilic vein. 0.3 minutes of fluoroscopy time was utilized for this procedure. Some fluoroscopic images are performed with last image hold technology. These images require no additional radiation. <Electronically signed by Chel Pierson > 06/14/21 1532 <Electronically signed by Uriel Root > 06/15/21 [id number]
[2021-06-15 22:00] VITALS: BP 139/92
[2021-06-15] MEDS: PROMETHAZINE INJ 25 MG/ML VIAL (J2550) IV PRN (22:43)
[2021-06-16] MEDS: NS 1,000 ML IV SCH ×4 (01:03→21:44)
[2021-06-16] MEDS: metroNIDAZOLE 500 MG in IV 1 EA IV SCH ×3 (03:55→18:48)
[2021-06-16] MEDS: HYDROMORPHONE HCL 0.5 MG/ 0.5 ML SYRINGE (J1170 PER 1) IV PRN ×5 (03:56→21:42)
[2021-06-16 05:41] LABS: MEAN CORPUSCULAR HEMOGLOBIN 30.6 pg (27.0-33.0); MEAN CORPUSCULAR HGB CONC 33.3 g/dl (32.0-36.5); MEAN CORPUSCULAR VOLUME 91.9 fl (80.0-96.0); PLATELET COUNT, AUTOMATED 332 10^3/uL (150-450); RED BLOOD COUNT 3.59 10^6/uL (4.00-5.40); WHITE BLOOD COUNT 8.7 10^3/uL (4.0-10.0)
[2021-06-16] MEDS: SODIUM CHLORIDE 0.9% INJ 10 ML SYR IV SCH ×2 (05:52→18:49)
[2021-06-16 05:56] LABS: BLOOD UREA NITROGEN 7 MG/DL (7-18); CALCIUM LEVEL 8.1 MG/DL (8.5-10.1); CARBON DIOXIDE LEVEL 27 MEQ/L (21-32); CHLORIDE LEVEL 100 MEQ/L (98-107); CREATININE FOR GFR 0.52 MG/DL (0.55-1.30); GLOMERULAR FILTRATION RATE > 60.0 (>60); GLUCOSE, FASTING 105 MG/DL (70-100); POTASSIUM SERUM 3.1 MEQ/L (3.5-5.1); SODIUM LEVEL 136 MEQ/L (136-145)
[2021-06-16 06:00] VITALS: BP 134/82
[2021-06-16 07:02] LABS: ATYPICAL LYMPH 1 % (0-5); LYMPHOCYTES 14 % (16-44); METAMYELOCYTES 1 % (0-0); MONOCYTES 5 % (0-5); NEUTROPHILS 74 % (28-66); PLATELET ESTIMATE NORMAL (NORMAL)
[2021-06-16 07:52] LABS: MAGNESIUM LEVEL 1.8 MG/DL (1.8-2.4)
[2021-06-16] MEDS: POTASSIUM CHLORIDE 10MEQ SR TABLET PO ONE ×2 (08:00→09:05)
[2021-06-16] MEDS: methylPREDNISolone 125MG 2ML VIAL IV SCH (09:04)
[2021-06-16] MEDS: CIPROFLOXACIN 400 MG in IV 1 EA IV SCH ×2 (09:05→21:42)
[2021-06-16] MEDS: SODIUM CHLORIDE 0.9% INJ 10 ML SYR IV PRN ×3 (09:09→21:44)
[2021-06-16] MEDS: PROMETHAZINE INJ 25 MG/ML VIAL (J2550) IV PRN ×3 (09:32→21:41)
--- NOTE | 2021-06-16 11:19 | IPNPDOC ---
Text Note Date of Service The patient was seen on 06/16/21. NOTE Subjective: Patient seen and examined at bedside. No acute overnight events reported. She states she is feeling better, however still notes improved diarrhea and improving abdominal pain. Objective: Vital Signs: reviewed General: NAD, sitting comfortably at edge of bed HEENT: NC/AT, EOMI Neck: supple, no masses Chest: lungs CTA B/L Heart: +S1S2, RRR Abd: soft, mild tenderness ND, +BS, obese Ext: no edema Skin: no rashes MSK: full ROM at large joints Neuro: no gross focal deficits Psych: AAOx3 ASSESSMENT: This is a 35-year-old female with history of Crohn's disease admitted from the GI Clinic due to worsening symptoms of Crohn's disease with nausea, vomiting and abdominal pain. CT abdomen and pelvis is still pending. Patient was found to have hyponatremia, hypokalemia due to vomiting and nausea at home. #crohn's exacerbation - discussed with GI - assistance appreciated - setting up for o/p Remicade - continue IV steroids for now - neg gi panel ct abd: [facility] ok to give iv solumedrol 60mg inpt. change to po prednisone taper 50mg as outpt iv cipro iv flagyl ivfluids liquid diet advance as tolerated #Hypokalemia, hyponatremia, resolved due to volume loss from diarrhea #Hypertension: Controlled. disposition: anticipate d/c in 1-2 days VS,Fishbone, I+O VS, Fishbone, I+O Laboratory Tests 06/16/21 05:12 Vital Signs Date Time Temp Pulse Resp B/P (MAP) Pulse Ox O2 Delivery O2 Flow Rate FiO2 06/16/21 09:10 18 Room Air 06/16/21 06:00 97.6 103 134/82 (99) 95 06/14/21 08:00 134.0 89 I&O- Last 24 Hours up to 6 AM 06/16/21 06:00 Intake Total 2950 ml Output Total 1 ml Balance 2949 ml HAL REHMAN MD Jun 16, 2021 11:19
[2021-06-16 14:00] VITALS: BP_SYST 129; BP_SYST 155; BP_DIAS 77; BP_DIAS 91
[2021-06-16 22:00] VITALS: BP 129/92
[2021-06-17] MEDS: HYDROMORPHONE HCL 0.5 MG/ 0.5 ML SYRINGE (J1170 PER 1) IV PRN ×3 (01:26→12:55)
[2021-06-17] MEDS: metroNIDAZOLE 500 MG in IV 1 EA IV SCH ×3 (02:47→18:10)
[2021-06-17] MEDS: NS 1,000 ML IV SCH ×2 (02:47→10:24)
[2021-06-17 06:00] VITALS: BP 140/89
[2021-06-17] MEDS: SODIUM CHLORIDE 0.9% INJ 10 ML SYR IV SCH ×2 (06:17→18:11)
[2021-06-17 06:28] LABS: HEMATOCRIT 32.8 % (36.0-47.0); HEMOGLOBIN 10.6 g/dl (12.0-15.5); MEAN CORPUSCULAR HEMOGLOBIN 30.7 pg (27.0-33.0); MEAN CORPUSCULAR HGB CONC 32.3 g/dl (32.0-36.5); MEAN CORPUSCULAR VOLUME 95.1 fl (80.0-96.0); PLATELET COUNT, AUTOMATED 333 10^3/uL (150-450); RED BLOOD COUNT 3.45 10^6/uL (4.00-5.40); WHITE BLOOD COUNT 6.6 10^3/uL (4.0-10.0)
[2021-06-17 06:49] LABS: BLOOD UREA NITROGEN 12 MG/DL (7-18); CALCIUM LEVEL 8.2 MG/DL (8.5-10.1); CARBON DIOXIDE LEVEL 27 MEQ/L (21-32); CHLORIDE LEVEL 103 MEQ/L (98-107); CREATININE FOR GFR 0.57 MG/DL (0.55-1.30); GLOMERULAR FILTRATION RATE > 60.0 (>60); GLUCOSE, FASTING 102 MG/DL (70-100); MAGNESIUM LEVEL 1.9 MG/DL (1.8-2.4); POTASSIUM SERUM 3.1 MEQ/L (3.5-5.1); SODIUM LEVEL 140 MEQ/L (136-145)
[2021-06-17 07:00] LABS: LYMPHOCYTES 29 % (16-44); MONOCYTES 1 % (0-5); NEUTROPHILS 70 % (28-66); PLATELET ESTIMATE NORMAL (NORMAL)
[2021-06-17] MEDS ORDERED: POTASSIUM CHLORIDE 10% LIQ 20 MEQ/15 ML UDC PO ONE (08:00)
[2021-06-17] MEDS: methylPREDNISolone 125MG 2ML VIAL IV SCH (08:07)
[2021-06-17] MEDS: PROMETHAZINE INJ 25 MG/ML VIAL (J2550) IV PRN ×2 (08:07→14:38)
[2021-06-17] MEDS: CIPROFLOXACIN 400 MG in IV 1 EA IV SCH ×2 (10:24→21:00)
[2021-06-17] MEDS: SODIUM CHLORIDE 0.9% INJ 10 ML SYR IV PRN ×3 (10:34→15:19)
--- NOTE | 2021-06-17 11:08 | IPNPDOC ---
Text Note Date of Service The patient was seen on 06/17/21. NOTE Subjective: Patient seen and examined at bedside. She had some bloody bowel movements overnight and this morning. She feels her abdominal pain,nausea have improved but it is difficult to obtain clear information from her. Objective: Vital Signs: reviewed General: NAD, lying comfortably in bed HEENT: NC/AT, EOMI Neck: supple, no masses Chest: lungs CTA B/L Heart: +S1S2, RRR Abd: soft, mild tenderness ND, +BS, obese Ext: no edema Skin: no rashes MSK: full ROM at large joints Neuro: no gross focal deficits Psych: AAOx3 A/P: 35F with PMHx of Crohn's disease admitted from the [facility] due to worsening symptoms of Crohn's disease with nausea, vomiting and abdominal pain. Patient was found to have hyponatremia, hypokalemia due to vomiting and nausea at home. #crohn's exacerbation - discussed with GI - assistance appreciated - setting up for o/p Remicade - continue IV steroids for now - DC with prednisone 50mg daily for 3-4 weeks with o/p follow up - started mesalamine today 1g q6h - neg gi panel - failed on entyvio - iv cipro iv flagyl - iv fluids - advance diet as tolerated #Hypokalemia, hyponatremia - resolved #HTN - controlled. disposition: pending clinical improvement VS,[place], I+O VS, [place], I+O Laboratory Tests 06/17/21 05:35 Vital Signs Date Time Temp Pulse Resp B/P (MAP) Pulse Ox O2 Delivery O2 Flow Rate FiO2 06/17/21 08:35 16 06/17/21 08:25 137/94 06/17/21 06:00 97.8 73 95 Room Air 06/14/21 08:00 134.0 89 I&O- Last 24 Hours up to 6 AM 06/17/21 05:59 Intake Total 2610 ml Output Total 600 ml Balance 2010 ml HAL REHMAN MD Jun 17, 2021 11:08
[2021-06-17 14:00] VITALS: BP 135/80
[2021-06-17] MEDS: MESALAMINE 250 MG CR CAP PO SCH ×3 (14:29→23:40)
[2021-06-17] MEDS ORDERED: ONDANSETRON 4MG/2ML VIAL IV PRN (16:25)
[2021-06-17] MEDS ORDERED: HYDROMORPHONE HCL 0.5 MG/ 0.5 ML SYRINGE (J1170 PER 1) IV ONE (16:35)
[2021-06-17] MEDS: MORPHINE 2 MG/ML 1ML VIAL (J2270) IV PRN (19:55)
[2021-06-17 22:00] VITALS: BP 137/92
[2021-06-18] MEDS: metroNIDAZOLE 500 MG in IV 1 EA IV SCH ×2 (02:17→11:47)
[2021-06-18] MEDS: MORPHINE 2 MG/ML 1ML VIAL (J2270) IV PRN ×3 (03:45→13:36)
[2021-06-18] MEDS: SODIUM CHLORIDE 0.9% INJ 10 ML SYR IV PRN ×2 (03:45→13:31)
[2021-06-18] MEDS: SODIUM CHLORIDE 0.9% INJ 10 ML SYR IV SCH ×2 (05:06→17:04)
[2021-06-18] MEDS: MESALAMINE 250 MG CR CAP PO SCH ×3 (05:07→17:00)
[2021-06-18 06:00] VITALS: BP 138/93
[2021-06-18 06:45] LABS: HEMATOCRIT 35.4 % (36.0-47.0); HEMOGLOBIN 11.3 g/dl (12.0-15.5); MEAN CORPUSCULAR HEMOGLOBIN 30.1 pg (27.0-33.0); MEAN CORPUSCULAR HGB CONC 31.9 g/dl (32.0-36.5); MEAN CORPUSCULAR VOLUME 94.4 fl (80.0-96.0); PLATELET COUNT, AUTOMATED 402 10^3/uL (150-450); RED BLOOD COUNT 3.75 10^6/uL (4.00-5.40); WHITE BLOOD COUNT 7.8 10^3/uL (4.0-10.0)
[2021-06-18 07:03] LABS: BLOOD UREA NITROGEN 10 MG/DL (7-18); CALCIUM LEVEL 8.4 MG/DL (8.5-10.1); CARBON DIOXIDE LEVEL 29 MEQ/L (21-32); CHLORIDE LEVEL 103 MEQ/L (98-107); CREATININE FOR GFR 0.49 MG/DL (0.55-1.30); GLOMERULAR FILTRATION RATE > 60.0 (>60); GLUCOSE, FASTING 96 MG/DL (70-100); SODIUM LEVEL 138 MEQ/L (136-145)
[2021-06-18 07:52] LABS: ATYPICAL LYMPH 1 % (0-5); LYMPHOCYTES 39 % (16-44); METAMYELOCYTES 1 % (0-0); MONOCYTES 8 % (0-5); NEUTROPHILS 51 % (28-66)
[2021-06-18 07:53] LABS: PLATELET ESTIMATE INCREASED (NORMAL)
[2021-06-18 07:54] LABS: PLATELET CLUMPS SMALL AMT; SMUDGE CELLS 1+
[2021-06-18 07:56] LABS: SCHISTOCYTES 1+
[2021-06-18] MEDS: methylPREDNISolone 125MG 2ML VIAL IV SCH (08:45)
[2021-06-18] MEDS ORDERED: amLODIPine 5 MG TAB PO SCH (09:00)
[2021-06-18] MEDS: CIPROFLOXACIN 400 MG in IV 1 EA IV SCH (10:25)
[2021-06-18] MEDS ORDERED: methocarbamoL 500 MG TAB PO PRN (11:15)
--- NOTE | 2021-06-18 11:15 | IPNPDOC ---
Text Note Date of Service The patient was seen on 06/18/21. NOTE Subjective: Patient seen and examined at bedside. She states she is feeling better this morning. No more bloody movements. Abdominal pain improving. No further vomiting. Objective: Vital Signs: reviewed General: NAD, sitting comfortably at edge of bed HEENT: NC/AT, EOMI Neck: supple, no masses Chest: lungs CTA B/L Heart: +S1S2, RRR Abd: soft, mild tenderness, ND, +BS, obese Ext: no edema Skin: no rashes MSK: full ROM at large joints Neuro: no gross focal deficits Psych: AAOx3 A/P: 35F with PMHx of Crohn's disease admitted from the GI Clinic due to worsening symptoms of Crohn's disease with nausea, vomiting and abdominal pain. Patient was found to have hyponatremia, hypokalemia due to vomiting and nausea at home. #crohn's exacerbation - discussed with GI - assistance appreciated - setting up for o/p Remicade - continue IV steroids for now - DC with prednisone 50mg daily for 3-4 weeks with o/p follow up - started mesalamine today 1g q6h - neg gi panel - failed on entyvio - iv cipro iv flagyl - 2 gram sodium diet #Hypokalemia, hyponatremia - continue to follow #HTN - resume norvasc disposition: pending clinical improvement VS,[place], I+O VS, [place], I+O Laboratory Tests 06/18/21 06:23 Vital Signs Date Time Temp Pulse Resp B/P (MAP) Pulse Ox O2 Delivery O2 Flow Rate FiO2 06/18/21 08:55 18 06/18/21 08:45 Room Air 06/18/21 06:00 97.2 77 138/93 (108) 98 06/14/21 08:00 134.0 89 I&O- Last 24 Hours up to 6 AM 06/18/21 05:59 Intake Total 4625 ml Output Total 800 ml Balance 3825 ml HAL REHMAN MD Jun 18, 2021 11:15
[2021-06-18 11:34] LABS: MAGNESIUM LEVEL 1.8 MG/DL (1.8-2.4)
[2021-06-18] MEDS ORDERED: POTASSIUM CHLORIDE 10% LIQ 20 MEQ/15 ML UDC PO ONE (12:00)
[2021-06-18 14:00] VITALS: BP 136/96
[2021-06-18] MEDS ORDERED: METR-265 PO (17:54)
[2021-06-18] MEDS ORDERED: MESA24CASA PO (17:54)
[2021-06-18] MEDS ORDERED: CIPR-249 PO (17:54)
[2021-06-18] MEDS ORDERED: PRED50TA PO (17:54)
[2021-06-18] MEDS ORDERED: POTA1TAB14 PO (18:01)
--- NOTE | 2021-06-18 18:30 | DS.PDOC ---
Discharge Summary General Date of Admission Jun 13, 2021 at 20:06 Date of Discharge 06/18/2021 Discharge Summary PROCEDURES PERFORMED DURING STAY: [None]. ADMITTING DIAGNOSES: 1. . DISCHARGE DIAGNOSES: 1. . COMPLICATIONS/CHIEF COMPLAINT: Severe Crohns Disease. HISTORY OF PRESENT ILLNESS: . HOSPITAL COURSE: Seen in consultation by gastroenterology. Recs for discharge home if abdominal pain improve, tolerating oral intake. Patient was initially unhappy regarding transitioning to morphine from dilaudid. However, following day she states her abdominal pain had significantly improved, she was ambulating, and tolerating liquid diet. She asked to have regular food. Later in the day, she was kathyi emma to be discharged home. DISCHARGE MEDICATIONS: Please see below. ALLERGIES: Please see below. PHYSICAL EXAMINATION ON DISCHARGE: VITAL SIGNS: Please see below. GENERAL: HEENT: NECK: CARDIOVASCULAR EXAMINATION: RESPIRATORY EXAMINATION: ABDOMINAL EXAMINATION: EXTREMITIES: SKIN: NEUROLOGICAL EXAMINATION: PSYCHIATRIC EXAMINATION: LABORATORY DATA: Please see below. IMAGING: PROGNOSIS: ACTIVITY: [As tolerated]. DIET: DISCHARGE PLAN: DISPOSITION: . DISCHARGE INSTRUCTIONS: 1. . ITEMS TO FOLLOWUP ON ON OUTPATIENT: 1. . DISCHARGE CONDITION: [Stable]. TIME SPENT ON DISCHARGE: 35 minutes. Vital Signs/I&Os Vital Signs Date Time Temp Pulse Resp B/P (MAP) Pulse Ox O2 Delivery O2 Flow Rate FiO2 06/18/21 14:00 98.1 95 16 136/96 (109) 96 Room Air 06/14/21 08:00 134.0 89 I&O- Last 24 Hours up to 6 AM 06/18/21 06:00 Intake Total 4150 ml Output Total 800 ml Balance 3350 ml Laboratory Data Labs 24H Laboratory Tests 2 06/18/21 06:23: Neutrophils (%) (Auto) , Nucleated Red Blood Cells % (auto) 0.0, Neutrophils 51, Lymphocytes (Manual) 39, Monocytes (Manual) 8H, Metamyelocytes 1H, Atypical Lymphocytes 1, Schistocytes 1+, Smudge Cells 1+, Platelet Estimate INCREASED, Clumped Platelets SMALL AMT, Anion Gap 6L, Glomerular Filtration Rate > 60.0, Calcium Level 8.4L, Magnesium Level 1.8 CBC/BMP Laboratory Tests 06/18/21 06:23 Microbiology Microbiology 06/14/21 Gastrointestinal Tract Panel (PCR) - Final, Complete 06/13/21 Blood Culture - Preliminary, Resulted No Growth after 72 hours. All specime... 06/13/21 Blood Culture - Preliminary, Resulted No Growth after 72 hours. All specime... Discharge Medications Scheduled Amlodipine Besylate (Amlodipine Besylate) 5 Mg Tablet, 5 MG PO DAILY, (Reported) Ciprofloxacin HCl (Cipro) 500 Mg Tablet, 1 TAB PO BID Mesalamine (Pentasa) 250 Mg Capsule.er, 1,000 MG PO Q6H Metronidazole (Metronidazole) 500 Mg Tablet, 500 MG PO TID Potassium Chloride (Potassium Chloride) 20 Meq Tablet.er, 1 TAB PO DAILY Prednisone (Prednisone) 50 Mg Tablet, 50 MG PO DAILY Scheduled PRN Methocarbamol (Methocarbamol) 500 Mg Tablet, 500 MG PO Q4H PRN for MUSCLE SPASMS, (Reported) Allergies Coded Allergies: No Known Allergies (Unverified , 06/05/21) HAL REHMAN MD Jun 18, 2021 18:30
== END 2021-06-18 19:30 | disposition home or self-care (01) | DRG 386 ==
LOC: M ED INP 20:06 → M PCU 21:01 → M MSPAV 06-14 16:40
PROVIDERS: ADMIT Family Medicine; ATTEND Internal Medicine
PROC: 02HV33Z Insertion of Infusion Device into Superior Vena Cava, Percutaneous Approach (ICD-10-PCS; principal; 2021-06-14 13:30)
DX: K50.80 Crohn's disease of both small and large intestine without complications (principal); E87.1 Hypo-osmolality and hyponatremia; I10 Essential (primary) hypertension; Z79.899 Other long term (current) drug therapy; I16.0 Hypertensive urgency; R00.0 Tachycardia, unspecified; E66.9 Obesity, unspecified; R11.2 Nausea with vomiting, unspecified; E87.6 Hypokalemia